=== PATIENT | male | born 1935 | race Two or more races ===

== ENCOUNTER 2025-10-11 18:00 | Inpatient (IN) | payer MEDICARE, OTHER ==
[~2025-10-11] VITALS: Ht 165.1 cm; Wt 61.9 kg
[2025-10-11 18:51] LABS: PLATELET COUNT (AUTO) 239 K/uL (150-450); RED BLOOD CELL COUNT(AUTO) 3.73 MIL/uL (4.5-6.0); RED CELL DISTRIBUTION WIDTH 15.2 % (11.5-15.0); WHITE BLOOD COUNT (AUTO) 10.2 K/uL (4.3-11.0)
[2025-10-11 18:58] LABS: CALCIUM, SERUM 8.2 mg/dL (8.5-10.1); CREATININE 2.3 mg/dL (0.6-1.3); SODIUM SERUM 136 mmol/L (136-145); UREA NITROGEN, BLOOD 45 mg/dL (7-18)
[2025-10-11] MEDS ORDERED: Z GUARD REMEDY 4 OZ OINT TP PRN (19:00)
[2025-10-11] MEDS ORDERED: ONDANSETRON HCL/PF 4 MG/2 ML VIAL IVP PRN (19:00)
[2025-10-11] MEDS ORDERED: MAGNESIUM HYDROXIDE 30 ML UDC PO PRN (19:00)
[2025-10-11] MEDS ORDERED: MAG HYDROX/AL HYDROX/SIMETH 30 ML UDC PO PRN (19:00)
[2025-10-11 19:02] LABS: INR 1.06 (0.91-1.10)
[2025-10-11] MEDS ORDERED: FINA5TAB11 PO (19:24)
[2025-10-11] MEDS ORDERED: ASPI-1420 PO (19:24)
[2025-10-11] MEDS ORDERED: SODI650T PO (19:24)
[2025-10-11] MEDS ORDERED: ROSU20TA2 PO (19:24)
[2025-10-11] MEDS ORDERED: METO25TA6 PO (19:24)
[2025-10-11] MEDS ORDERED: QUET25TA PO (19:24)
[2025-10-11] MEDS ORDERED: MIRABEGRON PO (19:24)
[2025-10-11] MEDS ORDERED: hydrALAZINE HCL IV 20 MG VIAL ONE (20:14)
[2025-10-11] MEDS: hydrALAZINE HCL IV 20 MG VIAL IV PRN (20:17)
[2025-10-11] MEDS ORDERED: QUETIAPINE FUMARATE 25 MG TABLET ONE (21:38)
[2025-10-11] MEDS: QUETIAPINE FUMARATE 25 MG TABLET PO STA (21:44)
[2025-10-12] MEDS ORDERED: IV NS 0.9% 250 ML IV ONE (00:28)
[2025-10-12] MEDS ORDERED: IOHEXOL-350 100 ML VIAL IV ONE (00:28)
[2025-10-12] MEDS ORDERED: CT SWABBABLE VALVE TRANS SET 1 EA INFUS.SET MC ONE (00:28)
[2025-10-12] MEDS ORDERED: IPRATROPIUM NEB FS 0.5 MG/2.5 ML AMPUL.NEB ONE (04:34)
[2025-10-12] MEDS: CLONIDINE HCL 0.1 MG TABLET PO PRN (05:40)
[2025-10-12 06:33] LABS: PLATELET COUNT (AUTO) 253 K/uL (150-450); RED BLOOD CELL COUNT(AUTO) 3.84 MIL/uL (4.5-6.0); RED CELL DISTRIBUTION WIDTH 15.2 % (11.5-15.0); WHITE BLOOD COUNT (AUTO) 9.1 K/uL (4.3-11.0)
[2025-10-12 06:48] LABS: INR 1.1 (0.91-1.10)
[2025-10-12 07:03] LABS: CALCIUM, SERUM 8.5 mg/dL (8.5-10.1); CREATININE 2.1 mg/dL (0.6-1.3); PHOSPHORUS 3.8 mg/dL (2.5-4.9); SODIUM SERUM 142.0 mmol/L (136-145); UREA NITROGEN, BLOOD 42.0 mg/dL (7-18)
[2025-10-12 08:54] LABS: IRON, SERUM 23 ug/dl (50-175)
[2025-10-12 09:03] VITALS: BP 179/111; TEMP 97.7; O2SAT 93
[2025-10-12 09:26] LABS: LDL 54 mg/dL (0-99)
[2025-10-12] MEDS: ATORVASTATIN 40 MG TABLET PO SCH (09:48)
[2025-10-12] MEDS: FINASTERIDE (5 MG) 5 MG TABLET PO SCH (09:48)
[2025-10-12] MEDS: ASPIRIN EC 81 MG TABLET.DR PO SCH (09:48)
[2025-10-12] MEDS: METOPROLOL TARTRATE 25 MG TABLET PO SCH (09:49)
[2025-10-12 20:00] VITALS: BP 145/91; TEMP 97.9; O2SAT 93
[2025-10-12] MEDS: IV D5/0.45 NACL 1,000 ML IV ONE (23:36)
[2025-10-13 07:00] VITALS: BP 156/93; TEMP 98.1; O2SAT 98
[2025-10-13 07:47] LABS: PLATELET COUNT (AUTO) 249 K/uL (150-450); RED BLOOD CELL COUNT(AUTO) 3.64 MIL/uL (4.5-6.0); RED CELL DISTRIBUTION WIDTH 15.4 % (11.5-15.0); WHITE BLOOD COUNT (AUTO) 9.4 K/uL (4.3-11.0)
[2025-10-13 07:58] LABS: ASPARTATE AMINOTRANSFERASE 32.0 U/L (15-37); CALCIUM, SERUM 7.9 mg/dL (8.5-10.1); CREATININE 1.8 mg/dL (0.6-1.3); PHOSPHORUS 4.1 mg/dL (2.5-4.9); SODIUM SERUM 139.0 mmol/L (136-145); TOTAL PROTEIN, SERUM 7.2 g/dL (6.4-8.2); UREA NITROGEN, BLOOD 41.0 mg/dL (7-18)
[2025-10-13 08:06] LABS: CREATININE, URINE 90.2 MG/DL (30.0-125.0); URINE SODIUM, RANDOM 80.0 mmol/l (40-220); URINE TOTAL PROTEIN 152.5 mg/dL (0-11.9)
[2025-10-13 08:07] LABS: APPEARANCE,URINE CLEAR (CLEAR); BLOOD, URINE 3+ Ery/uL (NEGATIVE); LEUKOCYTE ESTERASE ,URINE NEGATIVE (NEGATIVE); NITRITE, URINE NEGATIVE (NEGATIVE); UGLUCOSE NEGATIVE (NEGATIVE)
[2025-10-13] MEDS ORDERED: FENTANYL PF 100MCG/2ML AMPUL ONE (08:15)
[2025-10-13] MEDS ORDERED: SUGAMMADEX SODIUM 200 MG/2 ML VIAL IV ONE (08:15)
[2025-10-13] MEDS ORDERED: ROPIVACAINE HCL 0.5% 5 MG/ML 30ML VIAL ONE (08:15)
[2025-10-13] MEDS ORDERED: VASOPRESSIN INJ 20 UNIT/ML VIAL ONE (08:16)
[2025-10-13] MEDS ORDERED: BUPIVACAINE 0.5 % PF 150 MG/30 ML VIAL ONE (08:16)
[2025-10-13] MEDS ORDERED: ANESTHESIA TRAY IN PYXIS 1 EA TRAY MC ONE (08:16)
[2025-10-13 08:17] LABS: ADD URINE CULTURE NO; SQUAMOUS EPITHELIAL CELL,UR Few /HPF (None Seen)
[2025-10-13 08:18] LABS: EOSINOPHIL,URINE None Seen
[2025-10-13 08:45] LABS: CREATINE KINASE, TOTAL 71.0 U/L (39-308)
[2025-10-13] MEDS ORDERED: LABETALOL HCL IV 100MG VIAL ONE (10:15)
[2025-10-13 15:00] VITALS: BP 120/104; TEMP 97.7; O2SAT 97
[2025-10-13] MEDS: CEFAZOLIN 2 GM in IV D5W 100 ML IV SCH (16:02)
[2025-10-13 20:16] VITALS: BP 118/82; TEMP 98; O2SAT 91
[2025-10-14] MEDS: MORPHINE SULFATE INJ 2 MG/ML DISP.SYRIN IV PRN (00:30)
[2025-10-14 08:00] VITALS: BP 130/75; TEMP 97.9; O2SAT 97
[2025-10-14] MEDS: ENOXAPARIN SODIUM 30 MG/0.3 ML DISP.SYRIN SQ SCH (09:13)
[2025-10-14] MEDS ORDERED: MORPHINE SULFATE INJ 2 MG/ML DISP.SYRIN IV PRN (13:00)
[2025-10-14] MEDS: IV NS 0.9% 1,000 ML IV PRN (14:14)
[2025-10-14] MEDS: SOD FERRIC GLUC 125 MG in IV NS 0.9% 100 ML IV SCH (14:15)
[2025-10-14 16:00] VITALS: BP 110/67; TEMP 99; O2SAT 94
[2025-10-14 20:00] VITALS: BP 91/57; TEMP 97.8; O2SAT 90; O2SAT 94
[2025-10-14] MEDS: ACETAMINOPHEN 325 MG TABLET PO PRN (21:59)
[2025-10-14 23:50] VITALS: BP 96/57; TEMP 97.8; O2SAT 94
[2025-10-15] VITALS (11 sets, daily range): BP systolic 128–151; BP diastolic 63–99; TEMP 97.2–97.9; O2SAT 92–97
[2025-10-15 01:11] LABS: PTH, INTACT 59 pg/mL (15-65)
[2025-10-15 06:28] LABS: PLATELET COUNT (AUTO) 185 K/uL (150-450); RED BLOOD CELL COUNT(AUTO) 2.73 MIL/uL (4.5-6.0); RED CELL DISTRIBUTION WIDTH 15.1 % (11.5-15.0); WHITE BLOOD COUNT (AUTO) 7.9 K/uL (4.3-11.0)
[2025-10-15 06:49] LABS: ASPARTATE AMINOTRANSFERASE 45.0 U/L (15-37); CALCIUM, SERUM 7.6 mg/dL (8.5-10.1); CREATININE 2.7 mg/dL (0.6-1.3); PHOSPHORUS 4.5 mg/dL (2.5-4.9); SODIUM SERUM 142.0 mmol/L (136-145); TOTAL PROTEIN, SERUM 5.9 g/dL (6.4-8.2); UREA NITROGEN, BLOOD 61.0 mg/dL (7-18)
[2025-10-15 12:45] LABS: PLATELET COUNT (AUTO) 184 K/uL (150-450); RED BLOOD CELL COUNT(AUTO) 2.41 MIL/uL (4.5-6.0); RED CELL DISTRIBUTION WIDTH 15.3 % (11.5-15.0); WHITE BLOOD COUNT (AUTO) 7.9 K/uL (4.3-11.0)
[2025-10-15 14:07] LABS: *SPE A/G RATIO 0.8 (0.7-1.7); *SPE ALBUMIN 2.8 g/dL (2.9-4.4); *SPE ALPHA-1-GLOBULIN 0.5 g/dL (0.0-0.4); *SPE ALPHA-2-GLOBULIN 1.1 g/dL (0.4-1.0); *SPE BETA GLOBULIN 1.1 g/dL (0.7-1.3); *SPE GLOBULIN, TOTAL 3.6 g/dL (2.2-3.9); *SPE M-SPIKE Not Observed g/dL (Not Observed); *SPE PROTEIN TOTAL 6.4 g/dL (6.0-8.5); *SPEGAMMA GLOBULIN 1.0 g/dL (0.4-1.8)
[2025-10-15] MEDS: NEO/POLY-B/DEXAM OPHTH SUSP 5 ML BOTTLE EACHEYE SCH (14:32)
[2025-10-15 17:48] LABS: APPEARANCE,URINE SLIGHTLY CLOUDY (CLEAR); BLOOD, URINE 3+ Ery/uL (NEGATIVE); LEUKOCYTE ESTERASE ,URINE 1+ (NEGATIVE); NITRITE, URINE NEGATIVE (NEGATIVE); UGLUCOSE NEGATIVE (NEGATIVE)
[2025-10-15 18:01] LABS: CREATININE, URINE 114.5 MG/DL (30.0-125.0); URINE SODIUM, RANDOM 28.0 mmol/l (40-220); URINE TOTAL PROTEIN 82.4 mg/dL (0-11.9)
[2025-10-15 18:17] LABS: ADD URINE CULTURE YES
[2025-10-15 18:18] LABS: COARSE GRANULAR CASTS,URINE Moderate /LPF (None Seen)
[2025-10-15] MEDS: BISACODYL (5 MG) 5 MG TABLET.DR PO PRN (18:34)
[2025-10-15 18:37] LABS: EOSINOPHIL,URINE None Seen
[2025-10-16 06:58] LABS: PLATELET COUNT (AUTO) 214 K/uL (150-450); RED BLOOD CELL COUNT(AUTO) 3.25 MIL/uL (4.5-6.0); RED CELL DISTRIBUTION WIDTH 15.9 % (11.5-15.0); WHITE BLOOD COUNT (AUTO) 8.3 K/uL (4.3-11.0)
[2025-10-16 07:12] LABS: CREATINE KINASE, TOTAL 309.0 U/L (39-308)
[2025-10-16 07:13] LABS: ASPARTATE AMINOTRANSFERASE 61.0 U/L (15-37); CALCIUM, SERUM 7.8 mg/dL (8.5-10.1); CREATININE 2.6 mg/dL (0.6-1.3); PHOSPHORUS 3.8 mg/dL (2.5-4.9); SODIUM SERUM 144.0 mmol/L (136-145); TOTAL PROTEIN, SERUM 6.3 g/dL (6.4-8.2); UREA NITROGEN, BLOOD 58.0 mg/dL (7-18)
[2025-10-16 08:00] VITALS: BP 167/81; TEMP 97.7; O2SAT 95
[2025-10-16 16:00] VITALS: BP 132/113; TEMP 98.1; O2SAT 98
[2025-10-16 20:00] VITALS: BP 134/94; TEMP 97.7; O2SAT 96
[2025-10-17] VITALS (11 sets, daily range): BP systolic 116–177; BP diastolic 51–144; TEMP 96.6–98.7; O2SAT 90–99
[2025-10-17 06:48] LABS: ASPARTATE AMINOTRANSFERASE 56.0 U/L (15-37); CALCIUM, SERUM 7.5 mg/dL (8.5-10.1); CREATININE 2.2 mg/dL (0.6-1.3); PHOSPHORUS 3.8 mg/dL (2.5-4.9); SODIUM SERUM 145.0 mmol/L (136-145); TOTAL PROTEIN, SERUM 5.7 g/dL (6.4-8.2); UREA NITROGEN, BLOOD 56.0 mg/dL (7-18)
[2025-10-17 06:53] LABS: PLATELET COUNT (AUTO) 204 K/uL (150-450); RED BLOOD CELL COUNT(AUTO) 2.96 MIL/uL (4.5-6.0); RED CELL DISTRIBUTION WIDTH 17.4 % (11.5-15.0); WHITE BLOOD COUNT (AUTO) 7.8 K/uL (4.3-11.0)
[2025-10-17] MEDS: HYDROCODONE/APAP 5/325MG TABLET PO PRN (10:44)
[2025-10-17] MEDS: PROSOURCE / PROSTAT (PYXIS) 30 ML UDC PO SCH (17:00)
[2025-10-17 17:27] LABS: ABG BASE EXCESS -11.1 mmol/L (-2.0-3.0); ABG OXYGEN SATURATION 98.8 % (94.0-98.0); ABG PCO2 66.2 mmHg (35.0-48.0); ABG PH 7.077 (7.350-7.450); ABG PO2 297.2 mmHg (83.0-108.0); ABG TOTAL HEMOGLOBIN 10.1 G/dL (13.5-17.5); FRACTIONATED INSPIRED OXYGEN 100.0 %; SITE, ABG RIGHT RADIAL
[2025-10-17] MEDS ORDERED: ACETAMINOPHEN 650 MG/SUPP.RECT RC PRN (18:00)
[2025-10-18] VITALS: BP 116/51; TEMP 98.7; O2SAT 98
[2025-10-18 00:48] VITALS: O2SAT 97
[2025-10-18 03:20] VITALS: O2SAT 88; O2SAT 98
[2025-10-18] MEDS ORDERED: ETOMIDATE 2 MG/ML VIAL IV ONE (03:37)
== END 2025-10-18 03:38 | DRG 480 ==
LOC: ER 18:23 → MED 21:21
PROVIDERS: ADMIT Internal Medicine
PROC: 0QS606Z Reposition Right Upper Femur with Intramedullary Internal Fixation Device, Open Approach (ICD-10-PCS; principal; 2025-10-13 08:30)
PROC: 30233N1 Transfusion of Nonautologous Red Blood Cells into Peripheral Vein, Percutaneous Approach (ICD-10-PCS; 2025-10-15)
DX: S72.141A Displaced intertrochanteric fracture of right femur, initial encounter for closed fracture (principal); G93.41 Metabolic encephalopathy; N17.0 Acute kidney failure with tubular necrosis; J96.90 Respiratory failure, unspecified, unspecified whether with hypoxia or hypercapnia; Z51.5 Encounter for palliative care; F03.90 Unspecified dementia, unspecified severity, without behavioral disturbance, psychotic disturbance, mood disturbance, and anxiety; I73.9 Peripheral vascular disease, unspecified; I12.9 Hypertensive chronic kidney disease with stage 1 through stage 4 chronic kidney disease, or unspecified chronic kidney disease; N18.9 Chronic kidney disease, unspecified; D50.9 Iron deficiency anemia, unspecified; D62 Acute posthemorrhagic anemia; Z66 Do not resuscitate; I25.10 Atherosclerotic heart disease of native coronary artery without angina pectoris; W01.0XXA Fall on same level from slipping, tripping and stumbling without subsequent striking against object, initial encounter; E78.5 Hyperlipidemia, unspecified; I25.2 Old myocardial infarction; Z95.5 Presence of coronary angioplasty implant and graft; Y93.9 Activity, unspecified; Y92.009 Unspecified place in unspecified non-institutional (private) residence as the place of occurrence of the external cause; N25.0 Renal osteodystrophy
CPT/HCPCS: 31720; 36415; 36600; 70450-TC; 71045-TC; 73501; 73502; 76770-TC; 80048-TC; 80053-TC; 80061-TC; 81001; 82550-TC; 82553; 82570-TC; 82728-TC; 82803-TC; 82962-TC; 83540-TC; 83735-TC; 83970; 84100-TC; 84155; 84165; 84300-TC; 84439-TC; 84443-TC; 84484-TC; 85025-TC; 85027-TC; 85610-TC; 85730-TC; 86850-TC; 87086-TC; 93307-TC; 93880-TC; 94799-TC; 97112-TC; 97530-TC; A4217; A4223; A6209; A6223; A6254; C1713; G0378; J0360; J0690; J1100; J1650; J2270; J2405; J2704; J2765; J2795; J2916; J3010; J3490; J7030; J7040; J7050; J7060; P9016; Q9967